=== PATIENT | female | born 1995 | race Two or more races ===

== ENCOUNTER → 2017-01-28 | Outpatient (CLI) | payer MEDICARE, OTHER ==
[~2017-01-28] MED LIST: ACET160L13 PO; LEVE100S PEG
[2017-01-28 12:00] LABS: ALANINE AMINOTRANSFERASE 39 U/L (12-78); ALBUMIN 3.9 g/dL (3.4-5.0); ANION GAP 7 mmol/L (8-16); ASPARTATE AMINOTRANSFERASE 30 U/L (15-37); BILIRUBIN,TOTAL 0.5 mg/dL (0.1-1.0); CALCIUM, TOTAL 9.6 mg/dL (8.8-10.5); CARBON DIOXIDE 31 mmol/L (22-29); CHLORIDE 104 mmol/L (98-107); CREATININE 0.66 mg/dL (0.60-1.30); GLOMERULAR FILTR. RATE CALC > 60 mL/min (>60); POTASSIUM 4.6 mmol/L (3.5-5.1); SODIUM SERUM 142 mmol/L (136-145); TOTAL PROTEIN, SERUM 8.3 g/dL (6.4-8.2); UREA NITROGEN, BLOOD 10 mg/dL (7-18)
[2017-01-28 12:01] LABS: BASOPHILS % (AUTO) 0.6 % (0.0-2.0); EOSINOPHILS % (AUTO) 3.2 % (1.0-6.0); HEMOGLOBIN 13.8 g/dL (12.0-16.0); LYMPHOCYTES # (AUTO) 1.4 K/uL (1.0-4.8); LYMPHOCYTES % (AUTO) 20.4 % (22.0-44.0); MEAN CORPUSCULAR HEMOGLOBIN 27.4 pg (26.0-34.0); MEAN CORPUSCULAR HGB CONC 33.5 G/dL (31.0-37.0); MEAN CORPUSCULAR VOLUME 82 fL (80-100); MONOCYTES # (AUTO) 0.6 K/uL (0.1-1.0); MONOCYTES % (AUTO) 8.7 % (2.0-9.0); NEUTROPHILS # (AUTO) 4.6 K/uL (1.8-7.7); NEUTROPHILS % (AUTO) 67.1 % (40.0-70.0); PLATELET COUNT (AUTO) 167 K/uL (150-450); RED BLOOD CELL COUNT(AUTO) 5.02 MIL/uL (4.00-5.20); RED CELL DISTRIBUTION WIDTH 15.3 % (11.5-14.5); WHITE BLOOD COUNT (AUTO) 6.8 K/uL (4.5-11.0)
[2017-01-28 13:12] LABS: ERYTHROCYTE SEDIMENTATION RATE 30 MM/HR (0-20)
== END | disposition home or self-care (01) ==
LOC: MSR 09:51
PROVIDERS: ATTEND Emergency Medicine Undersea and Hyperbaric Medicine
DX: M16.0 Bilateral primary osteoarthritis of hip (principal)
CPT/HCPCS: 72170; 85651; 86140

== ENCOUNTER → 2017-02-04 | Outpatient (CLI) | payer MEDICARE, OTHER ==
[~2017-02-04] MED LIST changes: -ACET160L13 PO; +ACET160L34 PO; +SULF1TAB42 PEG
[2017-02-04 10:13] VITALS: BP 115/59
== END | disposition home or self-care (01) ==
LOC: HBOWC 09:45
PROVIDERS: ATTEND Orthopaedic Surgery
DX: L89.153 Pressure ulcer of sacral region, stage 3 (principal); M16.0 Bilateral primary osteoarthritis of hip
CPT/HCPCS: 97597

== ENCOUNTER → 2017-02-19 | Outpatient (CLI) | payer MEDICARE, OTHER ==
[~2017-02-19] MED LIST changes: +LIDOCAINE HCL 2% 5 ML JELLY TP ONE
[2017-02-19 09:33] VITALS: BP 102/62
== END | disposition home or self-care (01) ==
LOC: HBOWC 08:50
PROVIDERS: ATTEND Emergency Medicine
DX: L89.153 Pressure ulcer of sacral region, stage 3 (principal); G82.50 Quadriplegia, unspecified; M16.0 Bilateral primary osteoarthritis of hip
CPT/HCPCS: 11042

== ENCOUNTER → 2017-02-26 | Outpatient (CLI) | payer MEDICARE, OTHER ==
[~2017-02-26] MED LIST changes: -LIDOCAINE HCL 2% 5 ML JELLY TP ONE; -SULF1TAB42 PEG
[2017-02-26 09:29] VITALS: BP 109/63
== END | disposition home or self-care (01) ==
LOC: HBOWC 08:41
PROVIDERS: ATTEND Emergency Medicine
DX: L89.153 Pressure ulcer of sacral region, stage 3 (principal); G82.50 Quadriplegia, unspecified; M16.0 Bilateral primary osteoarthritis of hip
CPT/HCPCS: 11042

== ENCOUNTER → 2017-03-09 | Outpatient (CLI) | payer MEDICARE, OTHER ==
[2017-03-09 10:31] VITALS: BP 103/58
== END | disposition home or self-care (01) ==
LOC: HBOWC 09:57
PROVIDERS: ATTEND Emergency Medicine
DX: L89.153 Pressure ulcer of sacral region, stage 3 (principal); G82.20 Paraplegia, unspecified; M16.0 Bilateral primary osteoarthritis of hip
CPT/HCPCS: 11042

== ENCOUNTER → 2017-03-16 | Outpatient (CLI) | payer MEDICARE, OTHER ==
[2017-03-16 08:52] VITALS: BP 109/63
== END | disposition home or self-care (01) ==
LOC: HBOWC 08:32
PROVIDERS: ATTEND Emergency Medicine
DX: L89.153 Pressure ulcer of sacral region, stage 3 (principal); G82.50 Quadriplegia, unspecified; G82.20 Paraplegia, unspecified; M16.0 Bilateral primary osteoarthritis of hip
CPT/HCPCS: 11042

== ENCOUNTER → 2017-03-23 | Outpatient (CLI) | payer MEDICARE, OTHER ==
[2017-03-23 08:16] VITALS: BP 123/66
== END | disposition home or self-care (01) ==
LOC: HBOWC 07:32
PROVIDERS: ATTEND Emergency Medicine
DX: L89.153 Pressure ulcer of sacral region, stage 3 (principal); G82.50 Quadriplegia, unspecified; M16.0 Bilateral primary osteoarthritis of hip
CPT/HCPCS: 11042

== ENCOUNTER → 2017-03-30 | Outpatient (CLI) | payer MEDICARE, OTHER ==
[~2017-03-30] MED LIST changes: +LIDOCAINE HCL 2% 5 ML JELLY TP ONE
[2017-03-30 09:54] VITALS: BP 123/68
== END | disposition home or self-care (01) ==
LOC: HBOWC 08:54
PROVIDERS: ATTEND Emergency Medicine
DX: L89.153 Pressure ulcer of sacral region, stage 3 (principal); G82.50 Quadriplegia, unspecified; M16.0 Bilateral primary osteoarthritis of hip; G82.20 Paraplegia, unspecified
CPT/HCPCS: 11042; 97605

== ENCOUNTER → 2017-04-06 | Outpatient (CLI) | payer MEDICARE, OTHER ==
[~2017-04-06] MED LIST changes: -LIDOCAINE HCL 2% 5 ML JELLY TP ONE
[2017-04-06 09:16] VITALS: BP 121/70
== END | disposition home or self-care (01) ==
LOC: HBOWC 08:55
PROVIDERS: ATTEND Emergency Medicine
DX: L89.153 Pressure ulcer of sacral region, stage 3 (principal); T21.02XD Burn of unspecified degree of abdominal wall, subsequent encounter; G82.50 Quadriplegia, unspecified; M16.0 Bilateral primary osteoarthritis of hip; X08.8XXD Exposure to other specified smoke, fire and flames, subsequent encounter
CPT/HCPCS: 11042; 11045

== ENCOUNTER → 2017-04-13 | Outpatient (CLI) | payer MEDICARE, OTHER ==
[~2017-04-13] MED LIST changes: +LIDOCAINE HCL 2% 5 ML JELLY TP ONE
[2017-04-13 10:38] VITALS: BP 121/75
== END | disposition home or self-care (01) ==
LOC: HBOWC 08:37
PROVIDERS: ATTEND Emergency Medicine
DX: T21.02XD Burn of unspecified degree of abdominal wall, subsequent encounter (principal); T31.0 Burns involving less than 10% of body surface; L89.153 Pressure ulcer of sacral region, stage 3; M16.0 Bilateral primary osteoarthritis of hip; G82.50 Quadriplegia, unspecified; G82.20 Paraplegia, unspecified; X08.8XXD Exposure to other specified smoke, fire and flames, subsequent encounter
CPT/HCPCS: 11042; 97605

== ENCOUNTER → 2017-04-20 | Outpatient (CLI) | payer MEDICARE, OTHER ==
[2017-04-20 11:17] VITALS: BP 121/73
[2017-04-20 14:12] LABS: ALBUMIN 3.8 g/dL (3.4-5.0)
== END | disposition home or self-care (01) ==
LOC: HBOWC 10:04
PROVIDERS: ATTEND Emergency Medicine
DX: L89.153 Pressure ulcer of sacral region, stage 3 (principal); Z93.1 Gastrostomy status; R53.2 Functional quadriplegia; T21.02XA Burn of unspecified degree of abdominal wall, initial encounter
CPT/HCPCS: 84134; 85651; 86140

== ENCOUNTER → 2017-04-27 | Outpatient (CLI) | payer MEDICARE, OTHER ==
[2017-04-27 10:42] VITALS: BP 120/70
== END | disposition home or self-care (01) ==
LOC: HBOWC 10:06
PROVIDERS: ATTEND Emergency Medicine
DX: L89.153 Pressure ulcer of sacral region, stage 3 (principal); T21.02XD Burn of unspecified degree of abdominal wall, subsequent encounter; R53.2 Functional quadriplegia; M16.0 Bilateral primary osteoarthritis of hip; T31.0 Burns involving less than 10% of body surface; X08.8XXD Exposure to other specified smoke, fire and flames, subsequent encounter
CPT/HCPCS: 11042; 97605

== ENCOUNTER → 2017-05-04 | Outpatient (CLI) | payer MEDICARE, OTHER ==
[~2017-05-04] MED LIST changes: -LIDOCAINE HCL 2% 5 ML JELLY TP ONE
[2017-05-04 10:38] VITALS: BP 115/67
== END | disposition home or self-care (01) ==
LOC: HBOWC 09:34
PROVIDERS: ATTEND Emergency Medicine
DX: L89.153 Pressure ulcer of sacral region, stage 3 (principal); G82.50 Quadriplegia, unspecified; M16.0 Bilateral primary osteoarthritis of hip
CPT/HCPCS: 11042

== ENCOUNTER → 2017-05-10 | Outpatient (CLI) | payer MEDICARE, OTHER ==
[2017-05-10 09:25] VITALS: BP 110/73
== END | disposition home or self-care (01) ==
LOC: HBOWC 08:48
PROVIDERS: ATTEND Surgery Plastic and Reconstructive Surgery
DX: L89.153 Pressure ulcer of sacral region, stage 3 (principal); T21.02XD Burn of unspecified degree of abdominal wall, subsequent encounter; R53.2 Functional quadriplegia; M16.0 Bilateral primary osteoarthritis of hip; T31.0 Burns involving less than 10% of body surface; X08.8XXD Exposure to other specified smoke, fire and flames, subsequent encounter
CPT/HCPCS: 11043

== ENCOUNTER → 2017-05-27 | Outpatient (CLI) | payer MEDICARE, OTHER ==
[2017-05-27 09:37] VITALS: BP 106/66
== END | disposition home or self-care (01) ==
LOC: HBOWC 09:25
PROVIDERS: ATTEND Nurse Practitioner Adult Health
DX: T21.32XD Burn of third degree of abdominal wall, subsequent encounter (principal); G82.20 Paraplegia, unspecified; G82.50 Quadriplegia, unspecified; M19.90 Unspecified osteoarthritis, unspecified site; X08.8XXD Exposure to other specified smoke, fire and flames, subsequent encounter

== ENCOUNTER → 2017-06-03 | Outpatient (CLI) | payer MEDICARE, OTHER ==
[2017-06-03 08:38] VITALS: BP 117/76
== END | disposition home or self-care (01) ==
LOC: HBOWC 08:28
PROVIDERS: ATTEND Nurse Practitioner Adult Health
DX: L89.153 Pressure ulcer of sacral region, stage 3 (principal); G82.50 Quadriplegia, unspecified; M19.90 Unspecified osteoarthritis, unspecified site

== ENCOUNTER → 2017-06-23 | Outpatient (CLI) | payer MEDICARE, OTHER ==
[~2017-06-23] MED LIST changes: +GENTAMICIN SULFATE 0.1% 15 GM OINTMENT TP ONE; +LIDOCAINE HCL 4% 50 ML SOLUTION TP ONE
[2017-06-23 09:21] VITALS: BP 116/78
[2017-06-23 13:33] LABS: BASOPHILS % (AUTO) 0.4 % (0.0-2.0); EOSINOPHILS % (AUTO) 1.2 % (1.0-6.0); HEMATOCRIT 42.3 % (36-46); HEMOGLOBIN 14.4 g/dL (12.0-16.0); LYMPHOCYTES # (AUTO) 1.9 K/uL (1.0-4.8); LYMPHOCYTES % (AUTO) 36.5 % (22.0-44.0); MEAN CORPUSCULAR HEMOGLOBIN 27.4 pg (26.0-34.0); MEAN CORPUSCULAR VOLUME 80 fL (80-100); MONOCYTES # (AUTO) 0.4 K/uL (0.1-1.0); MONOCYTES % (AUTO) 7.7 % (2.0-9.0); NEUTROPHILS # (AUTO) 2.8 K/uL (1.8-7.7); NEUTROPHILS % (AUTO) 54.2 % (40.0-70.0); PLATELET COUNT (AUTO) 167 K/uL (150-450); RED BLOOD CELL COUNT(AUTO) 5.26 MIL/uL (4.00-5.20); RED CELL DISTRIBUTION WIDTH 14.3 % (11.5-14.5)
[2017-06-23 13:43] LABS: ALANINE AMINOTRANSFERASE 35 U/L (12-78); ALBUMIN 4.1 g/dL (3.4-5.0); ALKALINE PHOSPHATASE 105 U/L (46-116); ANION GAP 6 mmol/L (8-16); ASPARTATE AMINOTRANSFERASE 27 U/L (15-37); BILIRUBIN,TOTAL 0.7 mg/dL (0.1-1.0); C-REACTIVE PROTEIN QUANT 0.19 mg/dL (0.00-0.30); CALCIUM, TOTAL 9.8 mg/dL (8.8-10.5); CARBON DIOXIDE 29 mmol/L (22-29); CHLORIDE 99 mmol/L (98-107); CREATININE 0.61 mg/dL (0.60-1.30); GLOMERULAR FILTR. RATE CALC > 60 mL/min (>60); GLUCOSE,RANDOM 82 mg/dL (70-110); POTASSIUM 4.1 mmol/L (3.5-5.1); SODIUM SERUM 134 mmol/L (136-145); TOTAL PROTEIN, SERUM 8.5 g/dL (6.4-8.2); UREA NITROGEN, BLOOD 11 mg/dL (7-18)
[2017-06-23 15:01] LABS: ERYTHROCYTE SEDIMENTATION RATE 14 MM/HR (0-20)
== END | disposition home or self-care (01) ==
LOC: HBOWC 08:47
PROVIDERS: ATTEND Internal Medicine
DX: L89.153 Pressure ulcer of sacral region, stage 3 (principal); T21.02XD Burn of unspecified degree of abdominal wall, subsequent encounter; R53.2 Functional quadriplegia; R32 Unspecified urinary incontinence; M16.0 Bilateral primary osteoarthritis of hip; T31.0 Burns involving less than 10% of body surface; X08.8XXD Exposure to other specified smoke, fire and flames, subsequent encounter
CPT/HCPCS: 36415; 80053; 84134; 85025; 85651; 86140; G0463

== ENCOUNTER → 2017-07-07 | Outpatient (CLI) | payer MEDICARE, OTHER ==
[~2017-07-07] MED LIST changes: -GENTAMICIN SULFATE 0.1% 15 GM OINTMENT TP ONE
[2017-07-07 10:38] VITALS: BP 126/69
== END | disposition home or self-care (01) ==
LOC: HBOWC 09:40
PROVIDERS: ATTEND Internal Medicine
DX: L89.153 Pressure ulcer of sacral region, stage 3 (principal); T21.02XD Burn of unspecified degree of abdominal wall, subsequent encounter; R53.2 Functional quadriplegia; R32 Unspecified urinary incontinence; M16.0 Bilateral primary osteoarthritis of hip; T31.0 Burns involving less than 10% of body surface; X08.8XXD Exposure to other specified smoke, fire and flames, subsequent encounter

== ENCOUNTER → 2017-07-21 | Outpatient (CLI) | payer MEDICARE, OTHER ==
[~2017-07-21] MED LIST changes: -LIDOCAINE HCL 4% 50 ML SOLUTION TP ONE
[2017-07-21 10:06] VITALS: BP 101/61
== END | disposition home or self-care (01) ==
LOC: HBOWC 09:32
PROVIDERS: ATTEND Internal Medicine
DX: T21.02XD Burn of unspecified degree of abdominal wall, subsequent encounter (principal); T31.0 Burns involving less than 10% of body surface; L89.153 Pressure ulcer of sacral region, stage 3; M16.0 Bilateral primary osteoarthritis of hip; G82.50 Quadriplegia, unspecified; X08.8XXD Exposure to other specified smoke, fire and flames, subsequent encounter
CPT/HCPCS: 11042

== ENCOUNTER → 2017-08-04 | Outpatient (CLI) | payer MEDICARE, OTHER ==
[2017-08-04 10:31] VITALS: BP 126/69
== END | disposition home or self-care (01) ==
LOC: HBOWC 09:34
PROVIDERS: ATTEND Internal Medicine
DX: L89.153 Pressure ulcer of sacral region, stage 3 (principal); M16.0 Bilateral primary osteoarthritis of hip; G82.50 Quadriplegia, unspecified
CPT/HCPCS: 11042

== ENCOUNTER → 2017-08-18 | Outpatient (CLI) | payer MEDICARE, OTHER ==
[2017-08-18 10:23] VITALS: BP 103/60
== END | disposition home or self-care (01) ==
LOC: HBOWC 09:36
PROVIDERS: ATTEND Internal Medicine
DX: L89.153 Pressure ulcer of sacral region, stage 3 (principal); R53.2 Functional quadriplegia; R32 Unspecified urinary incontinence; M16.0 Bilateral primary osteoarthritis of hip; T21.02XD Burn of unspecified degree of abdominal wall, subsequent encounter; T31.0 Burns involving less than 10% of body surface; X08.8XXD Exposure to other specified smoke, fire and flames, subsequent encounter
CPT/HCPCS: 11042

== ENCOUNTER → 2017-09-01 | Outpatient (CLI) | payer MEDICARE, OTHER ==
[2017-09-01 11:18] VITALS: BP 97/54
== END | disposition home or self-care (01) ==
LOC: HBOWC 09:39
PROVIDERS: ATTEND Internal Medicine
DX: L89.153 Pressure ulcer of sacral region, stage 3 (principal); R53.2 Functional quadriplegia; T21.02XD Burn of unspecified degree of abdominal wall, subsequent encounter; R32 Unspecified urinary incontinence; M16.0 Bilateral primary osteoarthritis of hip; T31.0 Burns involving less than 10% of body surface; X08.8XXD Exposure to other specified smoke, fire and flames, subsequent encounter
CPT/HCPCS: 11042

== ENCOUNTER → 2017-09-15 | Outpatient (CLI) | payer MEDICARE, OTHER ==
[~2017-09-15] MED LIST changes: +GENTAMICIN SULFATE 0.1% 15 GM OINTMENT TP ONE; +LIDOCAINE HCL 4% 50 ML SOLUTION TP ONE
[2017-09-15 11:34] VITALS: BP 124/69
== END | disposition home or self-care (01) ==
LOC: HBOWC 09:33
PROVIDERS: ATTEND Internal Medicine
DX: L89.153 Pressure ulcer of sacral region, stage 3 (principal); T21.32XD Burn of third degree of abdominal wall, subsequent encounter; R53.2 Functional quadriplegia; T31.0 Burns involving less than 10% of body surface; M16.0 Bilateral primary osteoarthritis of hip; X08.8XXD Exposure to other specified smoke, fire and flames, subsequent encounter
CPT/HCPCS: 11042

== ENCOUNTER → 2017-09-29 | Outpatient (CLI) | payer MEDICARE, OTHER ==
[~2017-09-29] MED LIST changes: -GENTAMICIN SULFATE 0.1% 15 GM OINTMENT TP ONE; -LIDOCAINE HCL 4% 50 ML SOLUTION TP ONE
[2017-09-29 10:51] VITALS: BP 120/65
== END | disposition home or self-care (01) ==
LOC: HBOWC 09:42
PROVIDERS: ATTEND Internal Medicine
DX: L89.153 Pressure ulcer of sacral region, stage 3 (principal); R53.2 Functional quadriplegia; M16.0 Bilateral primary osteoarthritis of hip
CPT/HCPCS: 11042

== ENCOUNTER → 2017-10-13 | Outpatient (CLI) | payer MEDICARE, OTHER ==
[2017-10-13 14:24] VITALS: BP 115/68
== END | disposition home or self-care (01) ==
LOC: HBOWC 09:51
PROVIDERS: ATTEND Internal Medicine
DX: L89.153 Pressure ulcer of sacral region, stage 3 (principal); R53.2 Functional quadriplegia; M16.0 Bilateral primary osteoarthritis of hip
CPT/HCPCS: 11042

== ENCOUNTER → 2017-10-27 | Outpatient (CLI) | payer MEDICARE, OTHER ==
[2017-10-27 12:09] VITALS: BP 108/59
== END | disposition home or self-care (01) ==
LOC: HBOWC 09:57
PROVIDERS: ATTEND Internal Medicine
DX: L89.153 Pressure ulcer of sacral region, stage 3 (principal); T21.02XD Burn of unspecified degree of abdominal wall, subsequent encounter; S30.810D Abrasion of lower back and pelvis, subsequent encounter; R53.2 Functional quadriplegia; R32 Unspecified urinary incontinence; T31.0 Burns involving less than 10% of body surface; M16.0 Bilateral primary osteoarthritis of hip; X58.XXXD Exposure to other specified factors, subsequent encounter; X08.8XXD Exposure to other specified smoke, fire and flames, subsequent encounter
CPT/HCPCS: 17250

== ENCOUNTER → 2017-11-10 | Outpatient (CLI) | payer MEDICARE, OTHER ==
[2017-11-10 10:39] VITALS: BP 109/70
== END | disposition home or self-care (01) ==
LOC: HBOWC 09:47
PROVIDERS: ATTEND Internal Medicine
DX: L89.153 Pressure ulcer of sacral region, stage 3 (principal); T21.02XD Burn of unspecified degree of abdominal wall, subsequent encounter; S30.810D Abrasion of lower back and pelvis, subsequent encounter; R53.2 Functional quadriplegia; R32 Unspecified urinary incontinence; T31.0 Burns involving less than 10% of body surface; M16.0 Bilateral primary osteoarthritis of hip; X58.XXXD Exposure to other specified factors, subsequent encounter; X08.8XXD Exposure to other specified smoke, fire and flames, subsequent encounter

== ENCOUNTER → 2017-11-17 | Outpatient (CLI) | payer MEDICARE, OTHER ==
[2017-11-17 09:10] VITALS: BP 112/69
== END | disposition home or self-care (01) ==
LOC: HBOWC 08:44
PROVIDERS: ATTEND Internal Medicine
DX: L89.153 Pressure ulcer of sacral region, stage 3 (principal); T21.02XD Burn of unspecified degree of abdominal wall, subsequent encounter; R53.2 Functional quadriplegia; R32 Unspecified urinary incontinence; T31.0 Burns involving less than 10% of body surface; M16.0 Bilateral primary osteoarthritis of hip; X58.XXXD Exposure to other specified factors, subsequent encounter; X08.8XXD Exposure to other specified smoke, fire and flames, subsequent encounter